=== PATIENT | female | born 1980 | race Caucasian/White ===

== ENCOUNTER 2018-10-20 09:02 | Emergency (ER) | payer SELFPAY ==
[~2018-10-20] VITALS: Ht 157.5 cm; Wt 88.5 kg
[2018-10-20 09:41] LABS: BASOPHILS % (AUTO) 0 % (0-10); EOSINOPHILS # (AUTO) 0.1 10^3/uL (0.0-0.3); EOSINOPHILS % (AUTO) 1 % (0-10); HEMATOCRIT 28 % (35-52); HEMOGLOBIN 8.5 G/DL (11.5-16.0); LYMPHOCYTES # (AUTO) 1.4 X 10^3 (1.0-4.0); LYMPHOCYTES % (AUTO) 16 % (12-44); MEAN CORPUSCULAR HEMOGLOBIN 28 PG (25-34); MEAN CORPUSCULAR HGB CONC 31 G/DL (32-36); MEAN CORPUSCULAR VOLUME 89 FL (80-99); MEAN PLATELET VOLUME 9.2 FL (7.4-10.4); MONOCYTES # (AUTO) 0.7 X 10^3 (0.0-1.0); MONOCYTES % (AUTO) 8 % (0-12); NEUTROPHILS # (AUTO) 6.4 X 10^3 (1.8-7.8); NEUTROPHILS % (AUTO) 75 % (42-75); PLATELET COUNT 383 10^3/uL (130-400); RED CELL DISTRIBUTION WIDTH 13.7 % (10.0-14.5); WHITE BLOOD COUNT 8.7 10^3/uL (4.3-11.0)
[2018-10-20 09:54] LABS: BILIRUBIN,URINE NEGATIVE (NEGATIVE); CLARITY,URINE SLIGHTLY CLOUDY; COLOR,URINE YELLOW; GLUCOSE, URINE (UA) NEGATIVE (NEGATIVE); KETONES,URINE NEGATIVE (NEGATIVE); LEUKOCYTE ESTERASE ,URINE 3+ (NEGATIVE); NITRITE,URINE NEGATIVE (NEGATIVE); PH,URINE 7 (5-9); PROTEIN,URINE 2+ (NEGATIVE); UROBILINOGEN,URINE NORMAL (NORMAL)
[2018-10-20 10:02] LABS: ALANINE AMINOTRANSFERASE 13 U/L (0-55); ALBUMIN 4.3 GM/DL (3.2-4.5); ALKALINE PHOSPHATASE 85 U/L (40-136); BILIRUBIN,TOTAL 0.3 MG/DL (0.1-1.0); BUN/CREATININE RATIO 12; CALCIUM 9.7 MG/DL (8.5-10.1); CARBON DIOXIDE 23 MMOL/L (21-32); CHLORIDE 106 MMOL/L (98-107); CREATININE SERUM 0.77 MG/DL (0.60-1.30); GFR ESTIMATED > 60; GLUCOSE 93 MG/DL (70-105); POTASSIUM 3.8 MMOL/L (3.6-5.0); SODIUM 140 MMOL/L (135-145); TOTAL PROTEIN 7.6 GM/DL (6.4-8.2)
[2018-10-20 10:13] LABS: BACTERIA,URINE LARGE /HPF; WBC,URINE TNTC /HPF
[2018-10-20] MEDS ORDERED: cefTRIAXone FOR IV USE 1,000 MG in WATER (STERILE) FOR INJECTION 10 ML IV ONE (10:45)
[2018-10-20] MEDS ORDERED: CEPH-507 PO (11:15)
[2018-10-20] MEDS ORDERED: FERR-84 PO (11:15)
--- NOTE | 2018-10-20 11:19 | ED GU-Female ---
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 PT STATES SHE MISCARRIED AT APPROX 15 WKS ON September. PT STATES HER BLEEDING RESTARTED 2 NIGHTS AGO. STATES SHE HAD MORE CLOTS. STATES HER BLEEDING HAS IMPROVED TODAY. PT STATES SHE FEELS VERY TIRED. Nursing Sepsis Screen: No Definite Risk Source: patient Exam Limitations: no limitations History of Present Illness Date Seen by Provider: Oct 20, 2018 Time Seen by Provider: 09:12 Initial Comments This 38-year-old 10 para 9 presents to the emergency room with heavy vaginal bleeding after having a miscarriage on October 03. She had a miscarriage at home and did not seek medical attention at that time despite losing large amounts of blood and actually having syncopal episodes with the blood loss. She has seen Dr. Barbosa in the past for her obstetrical care. She denies any pain at this time. She is afebrile. She does feel very tired and sometimes lightheaded. She reports waking this morning in the morning before with heavy amounts of vaginal bleeding. The bleeding from a miscarriage had tapered off to minimal bleeding prior to the last 2 nights. She has minimal bleeding now upon arrival. She lives in [place]. She does not drive herself but she and her have a lifter driver by the name of the Lynn Ramachandran [phone]. Allergies and Home Medications Allergies Coded Allergies: No Known Drug Allergies (Unverified , 10/20/18) Home Medications Cephalexin 500 Mg Capsule, 500 MG PO TID Prescribed by: LIVIER LERMA on 10/20/18 1115 Ferrous Sulfate 325 Mg Tablet, 325 MG PO BID With meals Prescribed by: LIVIER ELRMA on 10/20/18 1115 Patient Home Medication List Home Medication List Reviewed: Yes Review of Systems Review of Systems Constitutional: no symptoms reported EENTM: no symptoms reported Respiratory: no symptoms reported Cardiovascular: syncope Gastrointestinal: no symptoms reported Genitourinary: see HPI : No LMP: Oct 03, 2018 Musculoskeletal: no symptoms reported Skin: no symptoms reported Psychiatric/Neurological: No Symptoms Reported Endocrine: No Symptoms Reported Past Pkbcawi-[id number]-Wnrsxm Hx Past Med/Social Hx: Reviewed Nursing Past Med/Soc Hx Patient Social History Alcohol Use: Denies Use Recreational Drug Use: No Smoking Status: Never a Smoker Recent Foreign Travel: No Contact w/Someone Who Travel: No Recent Infectious Disease Expo: No Recent Hopitalizations: No Immunizations Up To Date Tetanus Booster (TDap): Unknown Seasonal Allergies Seasonal Allergies: No Past Medical History Surgeries: Yes Appendectomy Respiratory: No Cardiac: No Neurological: No Hx : 10 Hx Para: 9 Hx Total # of Abortions (Sp): 1 Genitourinary: No Gastrointestinal: No Musculoskeletal: No Endocrine: No HEENT: No Cancer: No Psychosocial: No Integumentary: No Blood Disorders: No Physical Exam Vital Signs Vital Signs - First Documented 10/20/18 09:11 Temp 98.5 Pulse 108 Resp 22 B/P (MAP) 114/89 (97) Pulse Ox 100 O2 Delivery Room Air Capillary Refill : Less Than 3 Seconds Height, Weight, BMI Height: 5'2.00" Weight: 195lbs. oz. 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, no motor/sensory deficits, alert, normal mood/affect, oriented x 3 Skin: normal color, warm/dry Progress/Results/Core Measures Suspected Sepsis Recent Fever Within 48 Hours: No Infection Criteria Present: None New/Unexplained Altered Menta: No Sepsis Screen: No Definite Risk SIRS Temperature:98.5 Pulse: 108 Respiratory Rate: 22 Laboratory Tests 10/20/18 09:30: White Blood Count 8.7 Blood Pressure 114 /89 Mean: 97 Laboratory Tests 10/20/18 09:30: Creatinine 0.77, Platelet Count 383, Total Bilirubin 0.3 Results/Orders Lab Results Laboratory Tests Test 10/20/18 09:30 Range/Units White Blood Count 8.7 4.3-11.0 10^3/uL Red Blood Count 3.08 L 4.35-5.85 10^6/uL Hemoglobin 8.5 L 11.5-16.0 G/DL Hematocrit 28 L 35-52 % Mean Corpuscular Volume 89 80-99 FL Mean Corpuscular Hemoglobin 28 25-34 PG Mean Corpuscular Hemoglobin Concent 31 L 32-36 G/DL Red Cell Distribution Width 13.7 10.0-14.5 % Platelet Count 383 130-400 10^3/uL Mean Platelet Volume 9.2 7.4-10.4 FL Neutrophils (%) (Auto) 75 42-75 % Lymphocytes (%) (Auto) 16 12-44 % Monocytes (%) (Auto) 8 0-12 % Eosinophils (%) (Auto) 1 0-10 % Basophils (%) (Auto) 0 0-10 % Neutrophils # (Auto) 6.4 1.8-7.8 X 10^3 Lymphocytes # (Auto) 1.4 1.0-4.0 X 10^3 Monocytes # (Auto) 0.7 0.0-1.0 X 10^3 Eosinophils # (Auto) 0.1 0.0-0.3 10^3/uL Basophils # (Auto) 0.0 0.0-0.1 10^3/uL Urine Color YELLOW Urine Clarity SLIGHTLY CLOUDY Urine pH 7 5-9 Urine Specific [place] 1.010 L 1.016-1.022 Urine Protein 2+ H NEGATIVE Urine Glucose (UA) NEGATIVE NEGATIVE Urine Ketones NEGATIVE NEGATIVE Urine Nitrite NEGATIVE NEGATIVE Urine Bilirubin NEGATIVE NEGATIVE Urine Urobilinogen NORMAL NORMAL MG/DL Urine Leukocyte Esterase 3+ H NEGATIVE Urine RBC (Auto) 5+ H NEGATIVE Urine RBC NONE /HPF Urine WBC TNTC H /HPF Urine Crystals NONE /LPF Urine Bacteria LARGE H /HPF Urine Casts NONE /LPF Urine Mucus MODERATE H /LPF Urine Culture Indicated YES Sodium Level 140 135-145 MMOL/L Potassium Level 3.8 3.6-5.0 MMOL/L Chloride Level 106 98-107 MMOL/L Carbon Dioxide Level 23 21-32 MMOL/L Anion Gap 11 5-14 MMOL/L Blood Urea Nitrogen 9 7-18 MG/DL Creatinine 0.77 0.60-1.30 MG/DL Estimat Glomerular Filtration Rate > 60 BUN/Creatinine Ratio 12 Glucose Level 93 70-105 MG/DL Calcium Level 9.7 8.5-10.1 MG/DL Corrected Calcium 9.5 8.5-10.1 MG/DL Total Bilirubin 0.3 0.1-1.0 MG/DL Aspartate Amino Transf (AST/SGOT) 11 5-34 U/L Alanine Aminotransferase (ALT/SGPT) 13 0-55 U/L Alkaline Phosphatase 85 40-136 U/L Total Protein 7.6 6.4-8.2 GM/DL Albumin 4.3 3.2-4.5 GM/DL Human Chorionic Gonadotropin, Quant 120 H <5 MIU/ML My Orders Orders - LIVIER PITTS MD Cbc With Automated Diff (10/20/18 09:18) Comprehensive Metabolic Panel (10/20/18 09:18) Hcg,Quantitative (10/20/18:18) Ua Culture If Indicated (10/20/18:18) Abo Rh Type (10/20/18:18) Ed Iv/Invasive Line Start (10/20/18 09:18) Urine Culture (10/20/18 09:30) Ceftriaxone For Iv Use (Rocephin For I (10/20/18 10:45) Medications Given in ED Current Medications Medications Dose Ordered Sig/Macie Route Start Time Stop Time Status Last Admin Dose Admin Ceftriaxone Sodium 1000 mg/ Sterile Water 10 ml @ 200 mls/hr ONCE ONCE IV 10/20/18 10:45 10/20/18 10:47 DC 10/20/18 10:49 200 MLS/HR Vital Signs/I&O 10/20/18 10/20/18 09:11 12:22 Temp 98.5 Pulse 108 84 Resp 22 16 B/P (MAP) 114/89 (97) 112/75 (87) Pulse Ox 100 100 O2 Delivery Room Air Room Air Capillary Refill : Less Than 3 Seconds Blood Pressure Mean: 97 Progress Note : Progress Note Labs are obtained. Patient was found to be anemic but did not require transfusion. I discussed the case with Dr. POWELL. Since hCG was still present , and ultrasound was arranged for the next morning to ensure there are no retained products. She was scheduled for ultrasound [facility] at 09:00 and an order form was provided. Case was reviewed with Dr. Najera who will help arrange follow-up in the [facility] with Dr. Barbosa. Urinary tract infection was identified on urinalysis. A dose of Rocephin was administered in the ER. Departure Impression Primary Impression: Anemia Qualified Codes: D64.9 - Anemia, unspecified Additional Impressions: Urinary tract infection Qualified Codes: N39.0 - Urinary tract infection, site not specified Miscarriage Disposition: HOME, SELF-CARE Condition: Improved Departure-Patient Inst. Decision time for Depature: 12:02 Referrals: NO,LOCAL PHYSICIAN (PCP/Family) Primary Care Physician Patient Instructions: Anemia Caused by Low Iron, Urinary Tract Infections in Adults Add. Discharge Instructions: Drink plenty of clear liquids and eat a well-balanced diet. Include foods high in iron such as red meat, beans, leafy green vegetables such as spinach. Take your iron supplement as prescribed for the next 2 weeks. Complete your antibiotic as prescribed. Check with your primary care provider midweek to review urine culture and ensure you're taking the appropriate antibiotic. Follow-up at the [facility] emergency room tomorrow at 9:00 a.m. for an ultrasound. Bring your ultrasound report. Try to come with a full bladder. If you have worsening symptoms including worsening vaginal hemorrhage, worsening lightheadedness, or episodes of "passing out". Return to the ER or call 911. Follow-up with Dr. Barbosa as soon as possible. You may call the [facility] to arrange follow-up [phone]. All discharge instructions reviewed with patient and/or family. Voiced understanding. Scripts Ferrous Sulfate (Iron) 325 Mg Tablet 325 MG PO BID, #30 TAB With meals Prov: LIVIER PITTS MD 10/20/18 Cephalexin (Keflex) 500 Mg Capsule 500 MG PO TID, #20 CAP Prov: LIVIER PITTS MD 10/20/18 Copy Copies To 1: ARACELI BARBOSA DO Copies To 2: NAHUN NAJERA MD, JOSHUA T MD Oct 20, 2018 11:19
[2018-10-20 12:22] VITALS: BP 112/75
== END 2018-10-20 12:22 | disposition home or self-care (01) ==
LOC: ER 09:04
DX: D64.9 Anemia, unspecified (principal); N39.0 Urinary tract infection, site not specified; Z87.59 Personal history of other complications of pregnancy, childbirth and the puerperium; Z90.49 Acquired absence of other specified parts of digestive tract
CPT/HCPCS: 36415; 80053; 81000; 84702; 85025; 86900; 86901; 87088

== ENCOUNTER → 2018-10-21 | Outpatient (CLI) | payer SELFPAY ==
[~2018-10-21] MED LIST: CEPH-507 PO; FERR-84 PO
--- NOTE | 2018-10-21 10:26 | Diagnostic Imaging Report ---
PROCEDURE: US Non-ob pelvis comp/trans. TECHNIQUE: Multiple Real-time grayscale images were obtained of the pelvis in various projections endovaginally. Transabdominal imaging was also performed. INDICATION: Miscarriage 2.5 weeks ago, complaining of vaginal bleeding. FINDINGS: The uterus measures 9.6 x 8.2 x 5.8 cm. The endometrium is thickened at 19 mm and heterogeneous. No definite endometrial vascularity is present. No myometrial mass is seen. The right ovary measures 3.8 x 2.9 x 1.5 cm and the left ovary measures 2.6 x 2.1 x 1.4 cm. There is a small amount of free fluid present in the posterior cul-de-sac. IMPRESSION: Thickened, heterogeneous endometrium measuring 19 mm, likely containing blood products. No significant vascularity to the endometrium is seen to suggest vascularized retained products of conception. Dictated by: Dictated on workstation # [id number]
== END ==
LOC: RAD FS 09:13
PROVIDERS: ATTEND Family Medicine
DX: N93.9 Abnormal uterine and vaginal bleeding, unspecified (principal); R93.89 Abnormal findings on diagnostic imaging of other specified body structures
CPT/HCPCS: 76830; 76856